=== PATIENT | male | born 1970 | race Caucasian/White ===

== ENCOUNTER 2019-07-04 19:47 | Inpatient (IN) ==
[2019-07-04] MEDS ORDERED: Haloperidol Lactate 5 MG/ML VIAL IM PRN (21:53)
[2019-07-04] MEDS ORDERED: QUEtiapine Fumarate 25 MG TABLET PO PRN (21:53)
[2019-07-04] MEDS ORDERED: MOM Conc 10 ML UD.LIQ PO PRN (21:53)
[2019-07-04] MEDS ORDERED: hydrOXYzine pamoate 25 MG CAPSULE PO PRN (21:53)
[2019-07-04] MEDS ORDERED: Acetaminophen 325 MG TABLET PO PRN (21:53)
[2019-07-04] MEDS ORDERED: Mag Hydrox/Al Hydrox/Simeth 30 ML UDC PO PRN (21:53)
[2019-07-04] MEDS ORDERED: *HR* LORazepam 1 MG TABLET PO PRN (21:53)
[2019-07-04] MEDS ORDERED: *HR* LORazepam 2 MG/ML VIAL IM PRN (21:53)
[2019-07-04] MEDS: risperiDONE 1 MG TABLET PO SCH (22:31)
[2019-07-05] MEDS ORDERED: Aspirin Enteric Coated 81 MG Tablet PO SCH (09:00)
[2019-07-05] MEDS: Cyanocobalamin (B-12) 1,000 MCG TABLET PO SCH (09:17)
[2019-07-05] MEDS: risperiDONE 0.25 MG TABLET PO SCH (11:28)
[2019-07-05] MEDS: Aspirin Enteric Coated 81 MG Tablet PO SCH (16:43)
[2019-07-05 17:16] LABS: Folate 11.4 ng/mL (3.0-16.0)
[2019-07-05] MEDS: risperiDONE 1 MG TABLET PO SCH (21:04)
[2019-07-06] MEDS: Cyanocobalamin (B-12) 1,000 MCG TABLET PO SCH (08:46)
[2019-07-06] MEDS: risperiDONE 0.25 MG TABLET PO SCH ×2 (08:46→20:56)
[2019-07-06] MEDS: Aspirin Enteric Coated 81 MG Tablet PO SCH (16:52)
[2019-07-07] MEDS: risperiDONE 0.25 MG TABLET PO SCH ×2 (08:21→20:35)
[2019-07-07] MEDS: Cyanocobalamin (B-12) 1,000 MCG TABLET PO SCH (08:21)
[2019-07-07] MEDS: Aspirin Enteric Coated 81 MG Tablet PO SCH (17:18)
[2019-07-07 20:57] VITALS: BP 142/80
[2019-07-08] MEDS: Cyanocobalamin (B-12) 1,000 MCG TABLET PO SCH (08:41)
[2019-07-08] MEDS: risperiDONE 0.25 MG TABLET PO SCH (08:41)
== END 2019-07-08 08:50 | disposition home or self-care (01) | DRG 885 ==
LOC: EMEROOARM 19:47 → 1ANU 21:44 → INTOOBSV 21:44 → 1ANU 22:10
PROVIDERS: ADMIT Psychiatry & Neurology Psychiatry; ATTEND Psychiatry & Neurology Psychiatry

== ENCOUNTER 2020-01-12 22:31 | Observation (INO) ==
[2020-01-12 23:13] LABS: Basophils % 0.6 %; Eosinophils # 0.3 K/mcL (0.0-0.6); Eosinophils % 4.6 %; Hematocrit 45.8 % (37.5-50.1); Hemoglobin 15.4 g/dL (12.9-16.9); Immature Granulocytes % 0.9 % (0-4); Lymphocytes # 2.5 K/mcL (0.6-4.6); Mean Corpuscular HGB Conc 33.6 g/dL (31.6-35.5); Mean Corpuscular Hemoglobin 30.2 pg (28.0-33.3); Mean Corpuscular Volume 89.8 fL (83.0-100.0); Mean Platelet Volume 9.7 fL (9.4-12.4); Monocytes # 0.7 K/mcL (0.0-1.3); Monocytes % 10.1 %; Neutrophils # 3.2 K/mcL (1.6-8.9); Platelet Count 249 K/mcL (140-400); Red Cell Distribution Width 12.1 % (11.5-14.5); Segmented Neutrophils % 46.8 %; White Blood Count 6.7 K/mcL (4.3-11.1)
[2020-01-12 23:33] LABS: BUN/Creatinine Ratio 20 (6-26); Blood Urea Nitrogen 17 mg/dL (6-20); Calcium 9.1 mg/dL (8.6-10.3); Carbon Dioxide 24 mEq/L (23-29); Chloride 106 mEq/L (98-107); Glucose 115 mg/dL (70-105); Osmolality,Calculated 290 (280-300); Potassium 3.3 mEq/L (3.5-5.1); Sodium 139 mEq/L (136-145); eGFR For African Americans > 60 (> 60); eGFR For Non-African Americans > 60 (> 60)
[2020-01-13] MEDS ORDERED: Aspirin 81 MG TAB.CHEW PO STA (01:25)
[2020-01-13] MEDS ORDERED: Naloxone 0.4 MG/ML INJ IVP PRN (02:56)
[2020-01-13] MEDS ORDERED: Potassium Chloride Elixir 20 MEQ/15 ML UDC PO ONE (05:51)
[2020-01-13] MEDS ORDERED: Cyanocobalamin (B-12) 1,000 MCG TABLET PO SCH (09:00)
[2020-01-13] MEDS ORDERED: risperiDONE 0.25 MG TABLET PO SCH (09:00)
[2020-01-13 11:19] LABS: Hematocrit 45.4 % (37.5-50.1); Hemoglobin 15.5 g/dL (12.9-16.9); Mean Corpuscular HGB Conc 34.1 g/dL (31.6-35.5); Mean Corpuscular Hemoglobin 31.3 pg (28.0-33.3); Mean Corpuscular Volume 91.5 fL (83.0-100.0); Mean Platelet Volume 10.1 fL (9.4-12.4); Platelet Count 260 K/mcL (140-400); Red Blood Count 4.96 M/mcL (4.19-5.50); Red Cell Distribution Width 12.5 % (11.5-14.5); White Blood Count 7.3 K/mcL (4.3-11.1)
[2020-01-13 11:25] LABS: Prothrombin Time 11.7 Seconds (9.4-12.1)
[2020-01-13 11:28] LABS: Activated Partial Thrombo Time 33.1 Seconds (26.0-36.0)
[2020-01-13 11:32] LABS: Phosphorous 3.4 mg/dL (2.7-4.5)
[2020-01-13 11:35] LABS: Alanine Aminotransferase 28 Units/L (7-52); Albumin 4.2 g/dL (3.5-5.7); Albumin/Globulin Ratio 1.9 (1.1-2.2); Alkaline Phosphatase 68 Units/L (34-104); Aspartate Amino Transferase 16 Units/L (13-39); BUN/Creatinine Ratio 20 (6-26); Bilirubin,Total 0.6 mg/dL (0.3-1.0); Blood Urea Nitrogen 14 mg/dL (6-20); Carbon Dioxide 21 mEq/L (23-29); Chloride 107 mEq/L (98-107); Chol/HDL Ratio 3.3 (0-4.9); Cholesterol 130 mg/dL (< 200); Globulin 2.2 g/dL (2.4-3.5); Glucose 85 mg/dL (70-105); HDL Cholesterol 39 mg/dL (40-59); LDL Cholesterol,Calculated 76 mg/dL (< 100); Osmolality,Calculated 286 (280-300); Sodium 138 mEq/L (136-145); Total Protein 6.4 g/dL (6.4-8.9); Triglycerides 76 mg/dL (< 150); Troponin I < 0.03 ng/mL (< 0.04); eGFR For African Americans > 60 (> 60); eGFR For Non-African Americans > 60 (> 60)
[2020-01-13 12:02] LABS: Estimated Average Glucose 120 mg/dl
[2020-01-13 15:25] VITALS: BP 119/68
[2020-01-13] MEDS ORDERED: *HR* Heparin 5,000 UNIT/ML VIAL SQ SCH (18:00)
== END 2020-01-13 18:19 | disposition home or self-care (01) ==
LOC: 3BNU 22:31 → EMEROOARM 22:31 → 3BNU 01-13 02:22
PROVIDERS: ADMIT Family Medicine; ATTEND Family Medicine

== ENCOUNTER 2020-02-20 11:47 | Observation (INO) ==
[2020-02-20] MEDS ORDERED: 0.9 % Sodium Chloride 250 ML IVC ONE (12:29)
[2020-02-20 13:07] LABS: Basophils % 0.4 %; Eosinophils # 0.1 K/mcL (0.0-0.6); Eosinophils % 2.2 %; Hematocrit 45.4 % (37.5-50.1); Hemoglobin 15.5 g/dL (12.9-16.9); Immature Granulocytes % 0.7 % (0-4); Lymphocytes # 1.3 K/mcL (0.6-4.6); Lymphocytes % 23.6 %; Mean Corpuscular HGB Conc 34.1 g/dL (31.6-35.5); Mean Corpuscular Hemoglobin 31.4 pg (28.0-33.3); Mean Corpuscular Volume 91.9 fL (83.0-100.0); Mean Platelet Volume 9.8 fL (9.4-12.4); Monocytes # 0.6 K/mcL (0.0-1.3); Monocytes % 10.8 %; Neutrophils # 3.3 K/mcL (1.6-8.9); Platelet Count 243 K/mcL (140-400); Red Blood Count 4.94 M/mcL (4.19-5.50); Red Cell Distribution Width 12.1 % (11.5-14.5); Segmented Neutrophils % 62.3 %; White Blood Count 5.4 K/mcL (4.3-11.1)
[2020-02-20 13:19] LABS: Prothrombin Time 11.2 Seconds (9.4-12.1)
[2020-02-20 13:21] LABS: Bilirubin,Urine Negative (Negative); Blood,Urine Negative (Negative); Clarity,Urine Clear (Clear); Color,Urine Light-Yellow (Yellow); Glucose,Urine (UA) Normal (Normal); Ketones,Urine Negative (Negative); Leukocyte Esterase,Urine Negative (Negative); Nitrite,Urine Negative (Negative); Protein,Urine Negative (Neg-Trace); Specific Gravity,Urine 1.009 (1.010-1.025); Urobilinogen,Urine Normal (Normal)
[2020-02-20 13:21] LABS: Activated Partial Thrombo Time 31.2 Seconds (26.0-36.0)
[2020-02-20 13:42] LABS: Alanine Aminotransferase 30 Units/L (7-52); Albumin 4.4 g/dL (3.5-5.7); Albumin/Globulin Ratio 1.8 (1.1-2.2); Alkaline Phosphatase 78 Units/L (34-104); Aspartate Amino Transferase 19 Units/L (13-39); BUN/Creatinine Ratio 16 (6-26); Bilirubin,Total 0.6 mg/dL (0.3-1.0); Blood Urea Nitrogen 12 mg/dL (6-20); Calcium 9.4 mg/dL (8.6-10.3); Carbon Dioxide 24 mEq/L (23-29); Chloride 108 mEq/L (98-107); Globulin 2.4 g/dL (2.4-3.5); Glucose 104 mg/dL (70-105); Osmolality,Calculated 290 (280-300); Potassium 3.8 mEq/L (3.5-5.1); Sodium 140 mEq/L (136-145); Total Protein 6.8 g/dL (6.4-8.9); Troponin I < 0.03 ng/mL (< 0.04); eGFR For African Americans > 60 (> 60); eGFR For Non-African Americans > 60 (> 60)
[2020-02-20] MEDS ORDERED: *HR* LORazepam 2 MG/ML VIAL IVP ONE (14:47)
[2020-02-20] MEDS ORDERED: Naloxone 0.4 MG/ML INJ IVP PRN (14:53)
[2020-02-20] MEDS ORDERED: Ondansetron 4 MG/2 ML VIAL IVP PRN (14:53)
[2020-02-20] MEDS ORDERED: Perflutren Lipid Microsphere 1.3 ML in 0.9 % Sodium Chloride 8.7 ML IVP PRN ×2 (14:55→15:18)
[2020-02-20] MEDS: *HR* Heparin 5,000 UNIT/ML VIAL SQ SCH (18:15)
[2020-02-20] MEDS: Aspirin Enteric Coated 325 MG Tablet PO SCH (18:25)
[2020-02-20] MEDS ORDERED: Lurasidone 20 MG TABLET PO SCH (21:00)
[2020-02-21 05:34] LABS: Chol/HDL Ratio 3.3 (0-4.9)
[2020-02-21] MEDS: *HR* Heparin 5,000 UNIT/ML VIAL SQ SCH (05:36)
[2020-02-21 07:55] VITALS: BP 110/63
[2020-02-21] MEDS: Aspirin Enteric Coated 325 MG Tablet PO SCH (08:39)
[2020-02-21] MEDS ORDERED: Aspirin Enteric Coated 325 MG Tablet PO SCH (09:00)
[2020-02-21] MEDS ORDERED: Fluticasone Propionate Nasal 50 MCG/SPRAY BOTTLE NS SCH (09:00)
[2020-02-21 11:00] LABS: Estimated Average Glucose 111 mg/dl
== END 2020-02-21 11:01 | disposition home or self-care (01) ==
LOC: 3BNU 11:47 → EMEROOARM 11:47 → SUATTDRO 15:44 → 3BNU 16:39
PROVIDERS: ADMIT Student in an Organized Health Care Education/Training Program; ATTEND Internal Medicine

== ENCOUNTER 2020-07-02 16:56 | Observation (INO) ==
[2020-07-02 17:53] LABS: Basophils # 0.1 K/mcL (0.0-0.2); Basophils % 0.7 %; Eosinophils # 0.3 K/mcL (0.0-0.6); Eosinophils % 3.4 %; Hematocrit 49.8 % (37.5-50.1); Hemoglobin 16.8 g/dL (12.9-16.9); Immature Granulocytes % 0.7 % (0-4); Lymphocytes # 3.3 K/mcL (0.6-4.6); Lymphocytes % 32.2 %; Mean Corpuscular HGB Conc 33.7 g/dL (31.6-35.5); Mean Corpuscular Hemoglobin 30.1 pg (28.0-33.3); Mean Corpuscular Volume 89.1 fL (83.0-100.0); Mean Platelet Volume 9.9 fL (9.4-12.4); Monocytes # 1.1 K/mcL (0.0-1.3); Monocytes % 10.6 %; Neutrophils # 5.3 K/mcL (1.6-8.9); Platelet Count 309 K/mcL (140-400); Red Blood Count 5.59 M/mcL (4.19-5.50); Red Cell Distribution Width 11.9 % (11.5-14.5); Segmented Neutrophils % 52.4 %; White Blood Count 10.1 K/mcL (4.3-11.1)
[2020-07-02 17:58] LABS: Prothrombin Time 11.3 Seconds (9.4-12.1)
[2020-07-02 18:14] LABS: BUN/Creatinine Ratio 17 (6-26); Blood Urea Nitrogen 12 mg/dL (6-20); Calcium 9.4 mg/dL (8.6-10.3); Carbon Dioxide 23 mEq/L (23-29); Chloride 106 mEq/L (98-107); Glucose 101 mg/dL (70-105); Osmolality,Calculated 284 (280-300); Potassium 3.9 mEq/L (3.5-5.1); Sodium 137 mEq/L (136-145); Troponin I < 0.03 ng/mL (< 0.04); eGFR For African Americans > 60 (> 60); eGFR For Non-African Americans > 60 (> 60)
[2020-07-02 19:12] LABS: Alanine Aminotransferase 27 Units/L (7-52); Albumin 4.4 g/dL (3.5-5.7); Albumin/Globulin Ratio 1.6 (1.1-2.2); Alkaline Phosphatase 82 Units/L (34-104); Aspartate Amino Transferase 16 Units/L (13-39); Bilirubin,Indirect 0.4 mg/dL (0.0-1.0); Bilirubin,Total 0.4 mg/dL (0.3-1.0); Globulin 2.7 g/dL (2.4-3.5); Total Protein 7.1 g/dL (6.4-8.9)
[2020-07-02] MEDS ORDERED: 0.9 % Sodium Chloride 1,000 ML IV ONE (20:17)
[2020-07-02] MEDS ORDERED: Perflutren Lipid Microsphere 1.3 ML in 0.9 % Sodium Chloride 8.7 ML IVP PRN (22:25)
[2020-07-02] MEDS ORDERED: Naloxone 0.4 MG/ML INJ IVP PRN (22:38)
[2020-07-02] MEDS ORDERED: Acetaminophen 325 MG TABLET PO PRN (22:38)
[2020-07-02] MEDS ORDERED: Ondansetron 4 MG/2 ML VIAL IVP PRN (22:38)
[2020-07-02] MEDS ORDERED: hydrALAZINE 10 MG TABLET PO ONE (23:28)
[2020-07-02] MEDS ORDERED: Nitroglycerin 0.4 MG TAB.SUBL SL PRN (23:30)
[2020-07-03 03:20] LABS: Hematocrit 45.1 % (37.5-50.1); Hemoglobin 15.4 g/dL (12.9-16.9); Mean Corpuscular HGB Conc 34.1 g/dL (31.6-35.5); Mean Corpuscular Hemoglobin 30.8 pg (28.0-33.3); Mean Corpuscular Volume 90.2 fL (83.0-100.0); Mean Platelet Volume 10.2 fL (9.4-12.4); Platelet Count 266 K/mcL (140-400)
[2020-07-03 03:26] LABS: Prothrombin Time 11.3 Seconds (9.4-12.1)
[2020-07-03 03:41] LABS: BUN/Creatinine Ratio 18 (6-26); Blood Urea Nitrogen 12 mg/dL (6-20); Calcium 8.6 mg/dL (8.6-10.3); Carbon Dioxide 24 mEq/L (23-29); Chloride 107 mEq/L (98-107); Chol/HDL Ratio 4.3 (0-4.9); Cholesterol 130 mg/dL (< 200); Glucose 134 mg/dL (70-105); HDL Cholesterol 30 mg/dL (40-59); LDL Cholesterol,Calculated 70 mg/dL (< 100); Osmolality,Calculated 288 (280-300); Potassium 3.6 mEq/L (3.5-5.1); Sodium 138 mEq/L (136-145); Triglycerides 150 mg/dL (< 150); eGFR For African Americans > 60 (> 60); eGFR For Non-African Americans > 60 (> 60)
[2020-07-03] MEDS: *HR* Heparin 5,000 UNIT/ML VIAL SQ SCH ×2 (05:22→11:55)
[2020-07-03] MEDS ORDERED: Regadenoson 0.4 MG/5 ML SYRINGE IVP ONE (06:18)
[2020-07-03 08:33] LABS: Estimated Average Glucose 111 mg/dl; Hemoglobin A1C 5.5 %
[2020-07-03] MEDS ORDERED: Aspirin Enteric Coated 81 MG Tablet PO SCH (09:00)
[2020-07-03] MEDS ORDERED: amLODIPine 5 MG TABLET PO SCH (13:30)
[2020-07-03] MEDS ORDERED: Metoprolol XL (24 HR) Succ 25 MG TAB.ER.24H PO SCH (15:15)
[2020-07-03 15:41] VITALS: BP 146/87
== END 2020-07-03 17:50 | disposition home or self-care (01) ==
LOC: 3BNU 16:56 → EMEROOARM 16:56 → 3BNU 22:00
PROVIDERS: ADMIT Student in an Organized Health Care Education/Training Program; ATTEND Student in an Organized Health Care Education/Training Program

== ENCOUNTER 2021-12-20 12:41 | Observation (INO) ==
[2021-12-20] MEDS ORDERED: Iopamidol - 370 500 ML MLS IVP ONE (14:19)
[2021-12-20 14:30] LABS: Basophils % 0.6 %; Eosinophils # 0.1 K/mcL (0.0-0.6); Eosinophils % 1.3 %; Hematocrit 49.5 % (37.5-50.1); Hemoglobin 16.8 g/dL (12.9-16.9); Immature Granulocytes % 0.6 % (0-4); Lymphocytes # 1.5 K/mcL (0.6-4.6); Lymphocytes % 21.4 %; Mean Corpuscular HGB Conc 33.9 g/dL (31.6-35.5); Mean Corpuscular Hemoglobin 29.7 pg (28.0-33.3); Mean Corpuscular Volume 87.6 fL (83.0-100.0); Mean Platelet Volume 10.3 fL (9.4-12.4); Monocytes # 0.5 K/mcL (0.0-1.3); Neutrophils # 4.7 K/mcL (1.6-8.9); Platelet Count 284 K/mcL (140-400); Red Blood Count 5.65 M/mcL (4.19-5.50); Red Cell Distribution Width 12.3 % (11.5-14.5); Segmented Neutrophils % 69.1 %; White Blood Count 6.8 K/mcL (4.3-11.1)
[2021-12-20 14:40] LABS: Alanine Aminotransferase 24 Units/L (7-52); Albumin 4.4 g/dL (3.5-5.7); Albumin/Globulin Ratio 1.6 (1.1-2.2); Alkaline Phosphatase 75 Units/L (34-104); Aspartate Amino Transferase 18 Units/L (13-39); BUN/Creatinine Ratio 15 (6-26); Bilirubin,Direct 0.1 mg/dL (0.0-0.2); Bilirubin,Indirect 0.5 mg/dL (0.0-1.0); Bilirubin,Total 0.6 mg/dL (0.3-1.0); Blood Urea Nitrogen 13 mg/dL (6-20); Calcium 9.1 mg/dL (8.6-10.3); Carbon Dioxide 20 mEq/L (23-29); Chloride 104 mEq/L (98-107); Globulin 2.7 g/dL (2.4-3.5); Glucose 140 mg/dL (70-105); INR 1.1; Osmolality,Calculated 282 (280-300); Potassium 3.4 mEq/L (3.5-5.1); Prothrombin Time 12.5 Seconds (9.4-12.1); Sodium 135 mEq/L (136-145); Total Protein 7.1 g/dL (6.4-8.9); Troponin I < 0.03 ng/mL (< 0.04); eGFR For African Americans > 60 (> 60); eGFR For Non-African Americans > 60 (> 60)
[2021-12-20 14:42] LABS: Activated Partial Thrombo Time 37.1 Seconds (26.0-36.0)
[2021-12-20 15:16] LABS: Influenza A PCR Negative (Negative); Influenza B PCR Negative (Negative); Resp. Syncytial Virus PCR Negative (Negative)
[2021-12-20 15:19] LABS: SARS-CoV-2 by PCR (In House) Negative (Negative)
[2021-12-20 15:45] LABS: Bilirubin,Urine Negative (Negative); Blood,Urine Negative (Negative); Clarity,Urine Clear (Clear); Color,Urine Light-Yellow (Yellow); Glucose,Urine (UA) Normal (Normal); Ketones,Urine Negative (Negative); Leukocyte Esterase,Urine Negative (Negative); Nitrite,Urine Negative (Negative); Protein,Urine Negative (Neg-Trace); Specific Gravity,Urine 1.013 (1.010-1.025); Urobilinogen,Urine Normal (Normal)
[2021-12-20] MEDS ORDERED: Naloxone 0.4 MG/ML INJ IVP PRN (16:24)
[2021-12-20] MEDS ORDERED: Ondansetron 4 MG/2 ML VIAL IVP PRN (16:24)
[2021-12-20] MEDS ORDERED: Metoprolol XL (24 HR) Succ 25 MG TAB.ER.24H PO SCH (21:15)
[2021-12-20] MEDS ORDERED: amLODIPine 5 MG TABLET PO SCH (21:15)
[2021-12-21] MEDS ORDERED: Cyanocobalamin (B-12) 1,000 MCG TABLET PO SCH (09:00)
[2021-12-21] MEDS ORDERED: Aspirin Enteric Coated 81 MG Tablet PO SCH (09:00)
[2021-12-21 09:29] LABS: Basophils % 0.6 %; Eosinophils # 0.2 K/mcL (0.0-0.6); Eosinophils % 3.1 %; Hematocrit 50.5 % (37.5-50.1); Immature Granulocytes % 0.9 % (0-4); Lymphocytes # 2.3 K/mcL (0.6-4.6); Lymphocytes % 33.3 %; Mean Corpuscular HGB Conc 33.7 g/dL (31.6-35.5); Mean Corpuscular Hemoglobin 29.9 pg (28.0-33.3); Mean Corpuscular Volume 88.8 fL (83.0-100.0); Mean Platelet Volume 10.2 fL (9.4-12.4); Monocytes # 0.5 K/mcL (0.0-1.3); Monocytes % 6.5 %; Neutrophils # 3.9 K/mcL (1.6-8.9); Platelet Count 295 K/mcL (140-400); Red Blood Count 5.69 M/mcL (4.19-5.50); Red Cell Distribution Width 12.3 % (11.5-14.5); Segmented Neutrophils % 55.6 %
[2021-12-21 09:37] LABS: INR 1.1
[2021-12-21 09:52] LABS: Magnesium 1.9 mg/dL (1.6-2.6); Phosphorous 2.7 mg/dL (2.7-4.5)
[2021-12-21 09:57] LABS: Alanine Aminotransferase 22 Units/L (7-52); Albumin 4.3 g/dL (3.5-5.7); Albumin/Globulin Ratio 1.8 (1.1-2.2); Alkaline Phosphatase 75 Units/L (34-104); Aspartate Amino Transferase 17 Units/L (13-39); BUN/Creatinine Ratio 15 (6-26); Bilirubin,Total 0.6 mg/dL (0.3-1.0); Blood Urea Nitrogen 16 mg/dL (6-20); Calcium 8.8 mg/dL (8.6-10.3); Carbon Dioxide 25 mEq/L (23-29); Chloride 103 mEq/L (98-107); Chol/HDL Ratio 6.2 (0-4.9); Cholesterol 241 mg/dL (< 200); Globulin 2.4 g/dL (2.4-3.5); Glucose 175 mg/dL (70-105); HDL Cholesterol 39 mg/dL (40-59); LDL Cholesterol,Calculated 178 mg/dL (< 100); Osmolality,Calculated 285 (280-300); Potassium 3.9 mEq/L (3.5-5.1); Sodium 135 mEq/L (136-145); Total Protein 6.7 g/dL (6.4-8.9); Triglycerides 120 mg/dL (< 150); Troponin I < 0.03 ng/mL (< 0.04); eGFR For African Americans > 60 (> 60); eGFR For Non-African Americans > 60 (> 60)
[2021-12-21 11:16] VITALS: BP 165/90; PULSE 72; TEMP 98; O2SAT 97
[2021-12-21] MEDS ORDERED: Acetaminophen 325 MG TABLET PO ONE (11:52)
[2021-12-21 13:20] LABS: Estimated Average Glucose 117 mg/dl; Hemoglobin A1C 5.7 %
[2021-12-21] MEDS ORDERED: *HR* Heparin 5,000 UNIT/ML VIAL SQ SCH (18:56)
== END 2021-12-21 16:36 | disposition home or self-care (01) ==
LOC: EMEROOARM 12:41 → 3BNU 12:41 → SUATTDRO 17:05 → 3BNU 18:02
PROVIDERS: ADMIT Family Medicine; ATTEND Internal Medicine